=== PATIENT | male | born 1995 | race Caucasian/White ===

== ENCOUNTER 2020-12-28 08:15 | Emergency (ER) | payer OTHER, SELFPAY ==
[~2020-12-28] VITALS: Ht 167.6 cm; Wt 68.2 kg
[2020-12-28 12:39] VITALS: BP 126/83
== END 2020-12-28 12:51 | disposition home or self-care (01) ==
LOC: M ED 08:15
DX: F43.23 Adjustment disorder with mixed anxiety and depressed mood (principal); Z88.5 Allergy status to narcotic agent